=== PATIENT | male | born 1985 | race Caucasian/White ===

== ENCOUNTER 2020-02-06 12:30 | Emergency (ER) | payer OTHER ==
[2020-02-06 12:41] VITALS: TEMP 99
[2020-02-06] MEDS ORDERED: LIDOCAINE/EPINEPHR/TETRACAINE 5 ML BOTTLE TOPICAL ONE (13:02)
[2020-02-06] MEDS ORDERED: CLINDAMYCIN 150 MG/ML 4 ML VIAL IM STA (13:04)
--- NOTE | 2020-02-06 13:07 | ED ---
Skin/Abscess/FB HPI - General Chief complaint: Skin/Abscess/Foreign Body Stated complaint: abscess Time Seen by Provider: 02/06/20 12:54 Source: patient, RN notes reviewed, old records reviewed Mode of arrival: ambulatory Limitations: no limitations - History of Present Illness Initial comments: Patient is a 34-year-old male presents today from [facility]. He reports that he got there today with history of IVDU. He states that he has redness pain and irritation to his left nipple. He reports he's noticed that for the past week. Reports his increase in size significantly in the past 2 days. Patient written denies any IV or IM injectable drug use in the area. He denies any recent fevers or chills. Denies any history of resistant skin infections. Pt reports he may have had a small abrasion on the area from work. - Related Data Previous Rx's Medication Instructions Recorded Acetaminophen Tab [Tylenol Tab] 1,000 mg PO Q6HR #30 tablet 02/06/20 Clindamycin [Cleocin] 450 mg PO TID 10 Days #90 capsule 02/06/20 Ibuprofen [Motrin] 600 mg PO Q8HR PRN #30 tab 02/06/20 Allergies Allergy/AdvReac Type Severity Reaction Status Date / Time sulfamethoxazole Allergy Rash/Hives Verified 02/06/20 12:41 [From Bactrim] trimethoprim [From Bactrim] Allergy Rash/Hives Verified 02/06/20 12:41 Review of Systems ROS Statement: Those systems with pertinent positive or pertinent negative responses have been documented in the HPI. ROS Other: All systems not noted in ROS Statement are negative. Past Medical History Past Medical History: GERD/Reflux History of Any Multi-Drug Resistant Organisms: None Reported Additional Past Surgical History / Comment(s): ruptured ulcer Past Psychological History: Anxiety, Depression Smoking Status: Current every day smoker Past Alcohol Use History: Heavy Past Drug Use History: Cocaine, Heroin, IV Drug Use, Prescription Drug Abuse General Exam - General Exam Comments Initial Comments: 34 -year-old male. No distress. Limitations: no limitations General appearance: alert, in no apparent distress Head exam: Present: atraumatic, normocephalic, normal inspection Eye exam: Present: normal appearance, PERRL, EOMI. Absent: scleral icterus, conjunctival injection, periorbital swelling ENT exam: Present: normal exam, mucous membranes moist, TM's normal bilaterally Neck exam: Present: normal inspection. Absent: tenderness, meningismus, lymphadenopathy Respiratory exam: Present: normal lung sounds bilaterally, other (swelling, redness and induration around L nipple, area is 4cm by 2cm ). Absent: respiratory distress, wheezes, rales, rhonchi, stridor Cardiovascular Exam: Present: regular rate, normal rhythm, normal heart sounds. Absent: systolic murmur, diastolic murmur, rubs, gallop, clicks GI/Abdominal exam: Present: soft, normal bowel sounds. Absent: distended, tenderness, guarding, rebound, rigid Extremities exam: Present: normal inspection, full ROM, normal capillary refill. Absent: tenderness, pedal edema, joint swelling, calf tenderness Back exam: Present: normal inspection Neurological exam: Present: alert, oriented X3, CN II-XII intact Psychiatric exam: Present: normal affect, normal mood Skin exam: Present: warm, dry, intact, normal color. Absent: rash Course Vital Signs 02/06/20 02/06/20 12:38 14:13 Temperature 99.0 F Pulse Rate 87 89 Respiratory 20 16 Rate Blood Pressure 146/78 132/86 O2 Sat by Pulse 99 99 Oximetry Procedures - Pease Protocol (Time Out) Performing Provider: Lisa Obregon Nurse: Angela Pike Timeout Date: 02/06/20 Timeout Time: 13:30 Patient Identification (2 identifiers required): Chart, Verbal Patient/Legal Credit Risk Officer has Confirmed: Identity, Site Site: L pectoralis Site Marked: Yes Site Verified With Patient/Guardian: Yes Final Confirmation: Procedure, Site - Incision & Drainage Consent Obtained: verbal consent Indication: abscess Site: chest (L nipple and pectoralis) Size (cm): 4 Anesthetic Used: lidocaine 1%, with epi Amount (mLs): 4 I&D Cleaning Method: Alcohol Wipe Sterile Field Used?: Yes Scalpel Used: #11 I&D Drainage Obtained: Pus, Blood Packing: Iodoform Culture Obtained?: Yes Patient Tolerated Procedure: well, no complications Medical Decision Making - Medical Decision Making 34 year old male with history of IVDU presents with left pectoralis and nipple swelling,erythema that has developed overa week, but increased significantly in 2 days. He was checking into [facility] today and sent here for evaluation before full admission. Pt has abscess that was drained and aproximately 10cc of purulent fluid removed. Pt wound was packed. Tolerated procedure well. Hx ofallergy to bactrim and started on Clindamycin. Given IM injection prior to DC. Discussed follow up with surgeon and packing change for 2 days. Disposition Clinical Impression: Left breast abscess Disposition: HOME SELF-CARE Condition: Good Instructions (If sedation given, give patient instructions): Abscess (ED) Additional Instructions: Patient advised to have the packing removed in 2 days. Take the antibiotic as prescribed. Alternate Motrin and Tylenol. Prescriptions: Clindamycin [Cleocin] 450 mg PO TID 10 Days #90 capsule Ibuprofen [Motrin] 600 mg PO Q8HR PRN #30 tab PRN Reason: Pain Acetaminophen Tab [Tylenol Tab] 1,000 mg PO Q6HR #30 tablet Is patient prescribed a controlled substance at d/c from ED?: No Referrals: Nonstaff,Physician [Primary Care Provider] - 1-2 days Amador Samuels MD [STAFF PHYSICIAN] - 1-2 days Time of Disposition: 14:01
[2020-02-06] MEDS ORDERED: ACETAMINOPHEN TAB 500 MG TAB PO STA (13:43)
[2020-02-06] MEDS ORDERED: IBUPROFEN 600 MG TAB PO STA (13:43)
[2020-02-06 14:14] VITALS: BP 132/86; PULSE 89; RESP 16
== END 2020-02-06 14:18 | disposition home or self-care (01) ==
LOC: EC 12:30
DX: N61.1 Abscess of the breast and nipple (principal)
CPT/HCPCS: 10060; 87070; 87077; 87186; 87205; 96372; 99284